=== PATIENT | male | born 1985 | race African-American/Black ===

== ENCOUNTER 2016-07-25 17:33 | Emergency (ER) ==
[2016-07-25 17:38] VITALS: BP 160/105; TEMP 97.6; BMI 38.9
--- NOTE | 2016-07-25 17:57 | ED.PDOC ---
General ED Provider: Dr. JUDY BAÑUELOS Chief Complaint: Nausea/Vomiting Stated Complaint: Nausea and Vomiting; started a few days ago with diarrhea. Last vomited 1 X yesterday - afraid to eat anything or drink anything or will be sick. Time Seen by Physician: 17:50 Mode of Arrival: Walk-In Information Source: Patient Exam Limitations: No limitations Nursing and Triage Documentation Reviewed and Agree: Yes Review of Systems - Review Of Systems Constitutional: Reports: Malaise Eyes: Reports: No symptoms Ears, Nose, Mouth, Throat: Reports: No symptoms Respiratory: Reports: Cough (Slight - occasional) GI: Reports: Nausea : Reports: No symptoms All Other Systems: Reviewed and Negative Past Medical History - Past Medical History Previously Healthy: Yes Endocrine: Reports: None Cardiovascular: Reports: None Respiratory: Reports: None Hematological: Reports: None Gastrointestinal: Reports: None Genitourinary: Reports: None Neuro/Psych: Reports: None Musculoskeletal: Reports: None Cancer: Reports: None - Surgical History General Surgical History: Reports: None - Family History Family History: Reports: Unknown - Social History Smoking Status: Current every day smoker, Heavy tobacco smoker Hx Substance Use: No Alcohol Screening: Occasionally Physical Exam - Physical Exam Appearance: Ill-appearing Ill-appearing: Mild Eyes: YOBANI, EOMI ENT: Oropharynx normal Neck: Supple Respiratory: Airway patent, Breath sounds clear, Respirations nonlabored Cardiovascular: RRR, Pulses normal GI/: Soft, Nontender, Bowel sounds hyperactive Musculoskeletal: Normal strength, ROM intact Skin: Warm, Dry, Normal color Neurological: Sensation intact, Motor intact, Alert, Oriented Psychiatric: Affect appropriate, Mood appropriate Critical Care Note - Critical Care Note Total Time (mins): 15 Course - Course Hematology/Chemistry: 07/25/16 18:05 07/25/16 18:05 Orders, Labs, Meds: Lab Review 07/25/16 18:05 WBC 6.63 RBC 5.78 Hgb 16.7 Hct 49.7 MCV 86.0 MCH 28.9 MCHC 33.6 RDW Coeff of Irvin 12.9 Plt Count 264 Immature Gran % (Auto) 0.5 Neut % (Auto) 63.0 Lymph % (Auto) 26.1 [place] % (Auto) 9.4 Eos % (Auto) 0.5 Baso % (Auto) 0.5 Immature Gran # (Auto) 0.0 Neut # 4.2 Lymph # 1.7 [place] # 0.6 Eos # 0.0 Baso # 0.0 Sodium 137 Potassium 3.7 Chloride 97 L Carbon Dioxide 31 Anion Gap 12.7 BUN 11 Creatinine 1.35 H Estimated GFR (MDRD) 74.00 BUN/Creatinine Ratio 8.14 Glucose 117 H Calcium 9.4 Total Bilirubin 0.81 AST 52 H ALT 57 Alkaline Phosphatase 60 Total Protein 8.0 Albumin 4.0 Globulin 4.0 Albumin/Globulin Ratio 1.00 Orders Category Date Time Status CBC W/ AUTO DIFF Stat LAB 07/25/16 18:05 Completed COMPREHENSIVE METABOLIC PANEL Stat LAB 07/25/16 18:05 Completed Sodium Chloride 0.9% [Sodium Chloride] 1,000 ml MEDS 07/25/16 17:56 Discontinued IV BOLUS Medications Discontinued Medications Generic Name Dose Route Start Last Admin Trade Name Freq PRN Reason Stop Dose Admin Sodium Chloride 1,000 mls @ 1,000 mls/hr 07/25/16 17:56 07/25/16 18:31 Sodium Chloride IV 07/25/16 18:55 1,000 mls/hr BOLUS STA Administration Vital Signs: Temp Pulse Resp BP Pulse Ox 07/25/16 17:34 97.6 F 85 20 160/105 H 95 Departure - Departure Time of Disposition: 19:15 Disposition: HOME SELF-CARE Discharge Problem: Gastroenteritis Instructions: Gastroenteritis (ED) Condition: Good Pt referred to PMD for follow-up: Yes (call for appointment) Additional Instructions: Use nausea medication if needed; follow up with primary care provider as needed. Keep well hydrated - small amounts of clear fluids tomight - advance diet as tolerated tomorrow. Prescriptions: Ondansetron [Zofran Odt] 4 mg PO Q6HR PRN #10 tab.rapdis PRN Reason: Nausea / Vomiting Allergies/Adverse Reactions: Allergies No Known Allergies Allergy (Verified 07/25/16 17:38) Home Medications: Ambulatory Orders Ondansetron [Zofran Odt] 4 mg PO Q6HR PRN #10 tab.rapdis 07/25/16 Disposition Discussed With: Patient
[2016-07-25 18:07] LABS: BASOPHILS % (AUTO) 0.5 % (0.0-3.0); EOSINOPHILS % (AUTO) 0.5 % (0.0-7.0); HEMATOCRIT 49.7 % (42.0-52.0); HEMOGLOBIN 16.7 g/dl (14.0-18.0); IMMATURE GRANULOCYTE % (AUTO) 0.5 % (0.0-5.0); LYMPHOCYTES # (AUTO) 1.7 K/uL (0.60-3.4); LYMPHOCYTES % (AUTO) 26.1 (10.0-50.0); MEAN CORPUSCULAR HEMOGLOBIN 28.9 pg (27.0-31.0); MEAN CORPUSCULAR HGB CONC 33.6 (31.8-35.4); MONOCYTES # (AUTO) 0.6 K/uL (0.4-2.0); MONOCYTES % (AUTO) 9.4 (0-10); NEUTROPHILS # (AUTO) 4.2 K/ul (2.0-6.9); PLATELET COUNT 264 10^3/uL (140-440); RED BLOOD COUNT 5.78 10^6/ul (4.70-6.10); WHITE BLOOD COUNT 6.63 K/ul (4.2-10.2)
[2016-07-25 18:25] LABS: ANION GAP 12.7; BILIRUBIN,TOTAL 0.81 mg/dL (0.00-1.20); BUN/CREATININE RATIO 8.14; CALCIUM 9.4 mg/dL (8.2-10.2); CREATININE 1.35 mg/dL (0.60-1.10); POTASSIUM 3.7 mmol/L (3.5-5.1)
[2016-07-25] MEDS: SODIUM CHLORIDE 1,000 ML IV STA (18:31)
== END 2016-07-25 19:30 | disposition home or self-care (01) ==
LOC: ED 17:33
DX: K52.9 Noninfective gastroenteritis and colitis, unspecified (principal); F17.210 Nicotine dependence, cigarettes, uncomplicated
CPT/HCPCS: 36415; 80053; 85025; 96360; 96361; 99283

== ENCOUNTER 2016-07-31 23:40 | Inpatient (IN) ==
[2016-07-31] MEDS ORDERED: SODIUM CHLORIDE 1,000 ML IV STA (23:43)
[2016-07-31] MEDS ORDERED: ZOFRAN 4 MG/2 ML IVP STA (23:51)
[2016-07-31] MEDS ORDERED: DILAUDID 1 MG/ML SYRINGE IVP STA (23:51)
[2016-08-01 00:13] LABS: BASOPHILS # (AUTO) 0.1 K/uL (0-0.2); BASOPHILS % (AUTO) 0.4 % (0.0-3.0); EOSINOPHILS # (AUTO) 0.2 K/ul (0.0-0.7); EOSINOPHILS % (AUTO) 1.4 % (0.0-7.0); HEMATOCRIT 41.7 % (42.0-52.0); HEMOGLOBIN 13.9 g/dl (14.0-18.0); IMMATURE GRANULOCYTE % (AUTO) 0.9 % (0.0-5.0); LYMPHOCYTES # (AUTO) 4.1 K/uL (0.60-3.4); MEAN CORPUSCULAR HGB CONC 33.3 (31.8-35.4); MEAN CORPUSCULAR VOLUME 86.9 fl (80.0-94.0); MONOCYTES # (AUTO) 1.1 K/uL (0.4-2.0); MONOCYTES % (AUTO) 7.8 (0-10); NEUTROPHILS # (AUTO) 8.5 K/ul (2.0-6.9); NEUTROPHILS % (AUTO) 60.5; PLATELET COUNT 359 10^3/uL (140-440); WHITE BLOOD COUNT 14.04 K/ul (4.2-10.2)
[2016-08-01 00:28] LABS: ALBUMIN 3.7 g/dL (3.4-5.0); ALBUMIN/GLOBULIN RATIO 1.03; ANION GAP 11.8; BILIRUBIN,TOTAL 1.07 mg/dL (0.00-1.20); BUN/CREATININE RATIO 9.7; CREATININE 1.03 mg/dL (0.60-1.10); POTASSIUM 3.8 mmol/L (3.5-5.1); TOTAL PROTEIN 7.3 g/dL (6.4-8.2)
[2016-08-01 00:44] LABS: TROPONIN I 0.018 ng/ml (0.0000-0.4000)
[2016-08-01 01:21] LABS: BILIRUBIN,URINE Negative (NEGATIVE); KETONES,URINE Negative (NEGATIVE); LEUKOCYTE ESTERASE ,URINE Negative (NEGATIVE); NITRITE,URINE Negative (NEGATIVE); PH,URINE 5.5 (5-9); PROTEIN,URINE Negative (NEGATIVE); URINE, BLOOD Trace-lysed (NEGATIVE)
[2016-08-01 01:22] LABS: ADD URINE MICROSCOPIC YES
--- NOTE | 2016-08-01 01:48 | CT ---
Exam: CT of the abdomen and pelvis with and without contrast History: Abdominal pain Technique: [address] of the abdomen pelvis without and with intravascular contrast FINDINGS: The lung bases are clear. No significant liver abnormality. The adrenals, pancreas and sp carly are unremarkable. The stomach and hiatus are unremarkable.The gallbladder appears normal. Kidne ys and proximal collecting system are unremarkable. The appendix is normal. Bowel loops demonstrate normal caliber. No inflamatory change seen in the mesentery or retroperitoneum. Ren colonic divertic ulosis. Vascular structures appear normal. Colonic diverticulosis of the sigmoid. Inflammation adjacent to the proximal sigmoid with short seg ment sigmoid colonic thickening. No abscess or free intraperitoneal gas. Normal pelvic genitourina ry structures. No acute findings of the skeleton. Impression: 1. Proximal sigmoid colonic thickening with a phlegmonous inflammatory mass and local diverticulosi s. Acute diverticulitis is considered most likely. No abscess or free intraperitoneal gas. Divert icular disease noted the length of the colon.
--- NOTE | 2016-08-01 02:24 | ED.PDOC ---
General ED Provider: Dr. NANDA GROSS-ER Chief Complaint: Abdominal Pain Stated Complaint: lisette been hurting Time Seen by Physician: 23:45 Mode of Arrival: Walk-In Information Source: Patient Exam Limitations: No limitations Nursing and Triage Documentation Reviewed and Agree: Yes GI Complaint Exam - Abdominal Pain Complaint/Exam Onset: Gradual Duration: 4 dasy Symptoms Are: Still present Timing: Constant Initial Severity: Mild Current Severity: Moderate Location of Pain: LLQ Character: Reports: Dull, Aching, Cramping Alleviating: Reports: Spontaneous resolution Associated Signs and Symptoms: Reports: Fever, Constipation. Denies: Diaphoresis, Cough, Chest pain, Dizziness, Back pain, Blood in stool, Dysuria, Urinary frequency, Decreased urine output, Decreased appetite, Discharge, Nausea , Vomiting, Diarrhea, Decreased activity Abdominal Findings: Present: None Differential Diagnoses: Diverticulitis Review of Systems - Review Of Systems Constitutional: Reports: No symptoms Eyes: Reports: No symptoms Ears, Nose, Mouth, Throat: Reports: No symptoms Respiratory: Reports: No symptoms Cardiac: Reports: No symptoms GI: Reports: Abdominal pain : Reports: No symptoms Musculoskeletal: Reports: No symptoms Skin: Reports: No symptoms Neurological: Reports: No symptoms Endocrine: Reports: No symptoms Hematologic/Lymphatic: Reports: No symptoms All Other Systems: Reviewed and Negative Past Medical History - Past Medical History Previously Healthy: Yes Endocrine: Reports: None Cardiovascular: Reports: None Respiratory: Reports: None Hematological: Reports: None Gastrointestinal: Reports: None Genitourinary: Reports: None Neuro/Psych: Reports: None Musculoskeletal: Reports: None Cancer: Reports: None - Surgical History General Surgical History: Reports: None - Family History Family History: Reports: Unknown - Social History Smoking Status: Current every day smoker, Heavy tobacco smoker Hx Substance Use: No Alcohol Screening: Occasionally Lives: With family - Immunizations Tetanus Shot up to Date: Yes Physical Exam - Physical Exam Appearance: Well-appearing, No pain distress, Well-nourished Pain Distress: Moderate Eyes: YOBANI, EOMI, Conjunctiva clear ENT: Ears normal, Nose normal, Oropharynx normal Neck: Supple Respiratory: Airway patent Cardiovascular: RRR, Pulses normal, No rub, No murmur GI/: Soft, No masses, Bowel sounds normal, Tender Musculoskeletal: Normal strength, ROM intact, No edema, No calf tenderness Skin: Warm, Dry, Normal color Neurological: Sensation intact, Motor intact, Reflexes intact, Cranial nerves intact, Alert, Oriented Psychiatric: Affect appropriate, Mood appropriate Interpretation - Radiology Interpretation Radiology Interpretation By: Radiologist Radiology Results: Positive Exam Interpreted: CT Scan Re-Evaluation - Re-Evaluation Time of Re-Evaluation: 02:24 Status: Improved Vital Signs Stable: Yes Pain Level: 1 Appearance: NAD Lungs: Clear Skin: Warm and Dry Neuro: Alert and Oriented X3 CV: RRR Critical Care Note - Critical Care Note Total Time (mins): 0 Course - Course Hematology/Chemistry: 08/01/16 00:00 08/01/16 00:00 Orders, Labs, Meds: Lab Review 08/01/16 08/01/16 00:00 01:10 WBC 14.04 H RBC 4.80 Hgb 13.9 L Hct 41.7 L MCV 86.9 MCH 29.0 MCHC 33.3 RDW Coeff of Irvin 12.7 Plt Count 359 Immature Gran % (Auto) 0.9 Neut % (Auto) 60.5 Lymph % (Auto) 29.0 [place] % (Auto) 7.8 Eos % (Auto) 1.4 Baso % (Auto) 0.4 Immature Gran # (Auto) 0.1 Neut # 8.5 H Lymph # 4.1 H [place] # 1.1 Eos # 0.2 Baso # 0.1 Sodium 139 Potassium 3.8 Chloride 105 Carbon Dioxide 26 Anion Gap 11.8 BUN 10 Creatinine 1.03 Estimated GFR (MDRD) 101.00 BUN/Creatinine Ratio 9.70 Glucose 100 Calcium 9.0 Total Bilirubin 1.07 AST 27 ALT 41 Alkaline Phosphatase 52 Total Creatine Kinase 467 CK-MB (CK-2) 2.0 CK-MB (CK-2) % 0.16372 Troponin I 0.0180 Total Protein 7.3 Albumin 3.7 Globulin 3.6 Albumin/Globulin Ratio 1.03 Amylase 33 Lipase 20 Urine Color [place] Urine Clarity Clear Urine pH 5.5 Ur Specific [place] >=1.030 Urine Protein Negative Urine Glucose (UA) Negative Urine Ketones Negative Urine Blood Trace-lysed Urine Nitrite Negative Urine Bilirubin Negative Urine Urobilinogen 0.2 Ur Leukocyte Esterase Negative Urine Microscopic RBC 5-10 Ur Squamous Epith Cells 2-5 Urine Mucus Trace Orders Category Date Time Status EKG-(ED ONLY) Stat CARDIO 07/31/16 23:42 Completed NPO REMINDER: IMAGING ONCE CARE 07/31/16 23:52 Completed IV [ED IV/MEDIPORT/POWERPORT] .ONCE EMERGENCY 07/31/16 23:43 Active AMYLASE Stat LAB 07/31/16 23:42 Completed CBC W/ AUTO DIFF Stat LAB 07/31/16 23:42 Completed COMPREHENSIVE METABOLIC PANEL Stat LAB 07/31/16 23:42 Completed CREATINE KINASE Stat LAB 07/31/16 23:43 Completed LIPASE Stat LAB 07/31/16 23:42 Completed TROPONIN I Stat LAB 07/31/16 23:43 Completed URINALYSIS C & S IF INDICATED Stat LAB 08/01/16 01:10 Completed 0.9 % Sodium Chloride [Saline Flush] MEDS 07/31/16 23:43 Ordered 1 syr IVF PRN PRN Hydromorphone HCl [Dilaudid 1 mg/ml Syringe] MEDS 07/31/16 23:51 Discontinued 1 mg IVP ONCE STA Ondansetron HCl/Pf [Zofran 4 mg/2 ml] MEDS 07/31/16 23:51 Discontinued 4 mg IVP ONCE STA Sodium Chloride 0.9% [Sodium Chloride] 1,000 ml MEDS 07/31/16 23:43 Active IV 100 mls/hr CT ABDOMEN/PELVIS W/WO CONTRAS Stat RADS 07/31/16 23:52 Completed Medications Generic Name Dose Route Start Last Admin Trade Name Freq PRN Reason Stop Dose Admin Sodium Chloride 1,000 mls @ 100 mls/hr 07/31/16 23:43 08/01/16 01:00 Sodium Chloride IV 08/01/16 09:42 100 mls/hr .Q10H STA Administration Sodium Chloride 1 syr 07/31/16 23:43 08/01/16 01:05 Saline Flush IVF 1 syr PRN PRN Administration To flush IV Discontinued Medications Generic Name Dose Route Start Last Admin Trade Name Freq PRN Reason Stop Dose Admin Hydromorphone HCl 1 mg 07/31/16 23:51 08/01/16 01:02 Dilaudid 1 Mg/Ml Syringe IVP 07/31/16 23:52 1 mg ONCE STA Administration Ondansetron HCl 4 mg 07/31/16 23:51 08/01/16 01:00 Zofran 4 Mg/2 Ml IVP 07/31/16 23:52 4 mg ONCE STA Administration Vital Signs: Temp Pulse Resp BP Pulse Ox 07/31/16 23:41 100.3 F H 102 H 18 136/89 96 Departure - Departure Time of Disposition: 02:24 Disposition: ADMITTED INPATIENT Discharge Problem: Diverticulitis of intestine Qualifiers: Diverticulitis site: large intestine Diverticulitis bleeding: without bleeding Diverticulitis complication: without perforation or abscess Qualifier Code: ( K57.32) Diverticulitis of large intestine without perforation or abscess without bleeding Instructions: Diverticulitis (ED) Condition: Good Pt referred to PMD for follow-up: Yes Allergies/Adverse Reactions: Allergies No Known Allergies Allergy (Verified 07/31/16 23:49) Home Medications: Ambulatory Orders 1 [No Reported Medications] 07/31/16 Disposition Discussed With: Patient
[2016-08-01] MEDS: DILAUDID 1 MG/ML SYRINGE IVP PRN ×5 (03:44→21:03)
[2016-08-01] MEDS: ZOSYN 3.375 GM 3.375 GM in SODIUM CHLORIDE 100 ML IV SCH ×5 (03:50→23:36)
[2016-08-01 04:11] VITALS: BMI 39.4
[2016-08-01] MEDS ORDERED: FLAGYL 500 MG/100 ML 100 ML IV ONE (04:46)
[2016-08-01] MEDS: D5%-NS-KCL 20 MEQ/L IV SOL 1,000 ML IV SCH ×2 (04:51→17:26)
[2016-08-01] MEDS: FLAGYL 500 MG/100 ML 500 MG in PREMIX 100 ML NS 1 BAG IV SCH ×3 (04:58→20:52)
[2016-08-01 06:20] LABS: BASOPHILS % (AUTO) 0.3 % (0.0-3.0); EOSINOPHILS # (AUTO) 0.2 K/ul (0.0-0.7); EOSINOPHILS % (AUTO) 1.3 % (0.0-7.0); HEMATOCRIT 40.5 % (42.0-52.0); HEMOGLOBIN 13.3 g/dl (14.0-18.0); IMMATURE GRANULOCYTE % (AUTO) 0.8 % (0.0-5.0); LYMPHOCYTES # (AUTO) 4.1 K/uL (0.60-3.4); LYMPHOCYTES % (AUTO) 30.4 (10.0-50.0); MEAN CORPUSCULAR HGB CONC 32.8 (31.8-35.4); MEAN CORPUSCULAR VOLUME 88.2 fl (80.0-94.0); MONOCYTES # (AUTO) 1.3 K/uL (0.4-2.0); MONOCYTES % (AUTO) 9.5 (0-10); NEUTROPHILS # (AUTO) 7.8 K/ul (2.0-6.9); NEUTROPHILS % (AUTO) 57.7; PLATELET COUNT 339 10^3/uL (140-440); RED BLOOD COUNT 4.59 10^6/ul (4.70-6.10)
[2016-08-01 06:40] LABS: ALBUMIN 3.4 g/dL (3.4-5.0); ALBUMIN/GLOBULIN RATIO 0.97; ANION GAP 10.9; BILIRUBIN,TOTAL 1.43 mg/dL (0.00-1.20); BUN/CREATININE RATIO 9.17; CALCIUM 8.8 mg/dL (8.2-10.2); CREATININE 1.09 mg/dL (0.60-1.10); POTASSIUM 3.9 mmol/L (3.5-5.1); TOTAL PROTEIN 6.9 g/dL (6.4-8.2)
--- NOTE | 2016-08-01 12:53 | HP ---
DATE OF SERVICE: 08/01/16 CHIEF COMPLAINT: Abdominal pain HISTORY OF PRESENT ILLNESS: This 31 year old BLACK/ M was hospitalized 08/01/16. The patient is admitted with diverticulitis. The patient states he feels constipated with last bowel movement yesterday, which was small. The abdominal pain has been ongoing for 4 days, sharp and stabbing, moves into the groin area. No nausea or vomiting. No fever, no chills. He states he just got over the flu one week ago. REVIEW OF SYSTEMS: CONSTITUTIONAL: No fever, no chills. HEENT: Normal. ENDOCRINE: No weight gain; no weight loss. CVS: No chest pain. No PND, no orthopnea. No shortness of breath. RESPIRATORY: No cough, no congestion. No hemoptysis. GI: Abdominal pain. Constipation. No nausea, no vomiting. No melena. : No hematuria. No polyuria. MUSCULOSKELETAL: No joint swelling. PSYCHIATRIC: Not anxious. No depression. No suicidal thoughts. No homicidal thoughts. SKIN: Intact, no open lesions. PAST MEDICAL HISTORY: 1. Recent history of flu 2. Hypertension - does not take medications 3. Asthma - does not take medications PAST SURGICAL HISTORY: None PERSONAL HISTORY: The patient is single. He is employed by [employer]. He has one son. Alcohol - uses socially. Tobacco - current heavy smoker. History of marijuana use. FAMILY HISTORY: High blood pressure. MEDICATIONS: None ALLERGIES: NKDA PHYSICAL EXAMINATION: V/S: Temperature 98.0 F, Pulse 85, Respiratory Rate 12, BP 124/82, Pulse Ox 98% HEENT: Atraumatic, normocephalic. No scleral icterus. No pallor. NECK: Supple. No JVD, no bruit. No lymphadenopathy. No thyromegaly. HEART: S1, S2 normal. No murmur. No cyanosis or clubbing. No ascites. LUNGS: Clear to auscultation. No rales or rhonchi. ABDOMEN: Soft. Tenderness. Bowel sounds are not heard. No CVA tenderness. No rigidity or guarding. EXTREMITIES: No cyanosis, clubbing or pedal edema. MUSCULOSKELETAL: Normal joints, no swelling. NEUROLOGIC: The patient is awake, alert, oriented times three. SKIN: Intact; no open lesions. LYMPHATIC: No lymph nodes palpable. LAB REVIEW: 08/01/16 06:15: WBC 13.50 H, RBC 4.59 L, Hgb 13.3 L, Hct 40.5 L, MCV 88.2, MCH 29.0, MCHC 32.8, RDW Coeff of Irvin 12.8, Plt Count 339, Immature Gran % (Auto) 0.8, Neut % (Auto) 57.7, Lymph % (Auto) 30.4, [place] % (Auto) 9.5, Eos % (Auto) 1.3, Baso % (Auto) 0.3, Immature Gran # (Auto) 0.1, Neut # 7.8 H, Lymph # 4.1 H , [place] # 1.3, Eos # 0.2, Baso # 0.0, Sodium 140, Potassium 3.9, Chloride 105, Carbon Dioxide 28, Anion Gap 10.9, BUN 10, Creatinine 1.09, Estimated GFR (MDRD ) 95.00, BUN/Creatinine Ratio 9.17, Glucose 103 H, Calcium 8.8, Total Bilirubin 1.43 H, AST 24, ALT 36, Alkaline Phosphatase 51, Total Protein 6.9, Albumin 3.4 , Globulin 3.5, Albumin/Globulin Ratio 0.97 ASSESSMENT: 1. Acute diverticulitis proximal sigmoid colon/constipation. PLAN: 1. Continue Flagyl, Azactam and Zofran. 2. Continue IV fluids; keep NPO 3. Dilaudid for pain 4. The patient is encouraged to walk, which will help with the inflammation/ diverticulitis Plan and coordination of the patient's care discussed in the presence of Transmission Inspector and nurse. CONDITION: Stable SCRIBED BY: PHILLIP MEDLEY Agricultural Loan Officer scribed while in presence of service performed by Dr. MAGGIE LUIS on 08/01/16 ([id number]) [facility]
[2016-08-02] MEDS: FLAGYL 500 MG/100 ML 500 MG in PREMIX 100 ML NS 1 BAG IV SCH ×3 (05:17→21:01)
[2016-08-02] MEDS: D5%-NS-KCL 20 MEQ/L IV SOL 1,000 ML IV SCH ×3 (05:18→18:05)
[2016-08-02] MEDS: DILAUDID 1 MG/ML SYRINGE IVP PRN ×5 (05:20→21:06)
[2016-08-02] MEDS: ZOSYN 3.375 GM 3.375 GM in SODIUM CHLORIDE 100 ML IV SCH ×4 (06:06→23:55)
[2016-08-02 06:08] LABS: BASOPHILS % (AUTO) 0.3 % (0.0-3.0); EOSINOPHILS # (AUTO) 0.1 K/ul (0.0-0.7); EOSINOPHILS % (AUTO) 0.8 % (0.0-7.0); HEMATOCRIT 40.1 % (42.0-52.0); HEMOGLOBIN 13.5 g/dl (14.0-18.0); IMMATURE GRANULOCYTE % (AUTO) 0.9 % (0.0-5.0); LYMPHOCYTES % (AUTO) 21.3 (10.0-50.0); MEAN CORPUSCULAR HGB CONC 33.7 (31.8-35.4); MEAN CORPUSCULAR VOLUME 86.1 fl (80.0-94.0); MONOCYTES # (AUTO) 1.6 K/uL (0.4-2.0); MONOCYTES % (AUTO) 11.2 (0-10); NEUTROPHILS # (AUTO) 9.2 K/ul (2.0-6.9); NEUTROPHILS % (AUTO) 65.5; PLATELET COUNT 375 10^3/uL (140-440); RED BLOOD COUNT 4.66 10^6/ul (4.70-6.10); WHITE BLOOD COUNT 14.06 K/ul (4.2-10.2)
[2016-08-02 06:34] LABS: ALBUMIN 3.2 g/dL (3.4-5.0); ALBUMIN/GLOBULIN RATIO 0.89; ANION GAP 11.5; BILIRUBIN,TOTAL 1.95 mg/dL (0.00-1.20); BUN/CREATININE RATIO 8.41; CALCIUM 8.7 mg/dL (8.2-10.2); CREATININE 1.07 mg/dL (0.60-1.10); POTASSIUM 3.5 mmol/L (3.5-5.1); TOTAL PROTEIN 6.8 g/dL (6.4-8.2)
[2016-08-02] MEDS ORDERED: TYLENOL PO PRN (08:18)
--- NOTE | 2016-08-02 09:28 | CT ---
EXAM: CT ABDOMEN AND PELVIS HISTORY: Abdominal and pelvic pain TECHNIQUE: CT abdomen and pelvis with intravenous contrast. Images were reconstructed using 5 mm se ction thickness. Reformations were prepared. 75 mL Omnipaque. COMPARISON: 08/01/16 FINDINGS: Liver and spleen have no focal lesions. Gallbladder, pancreas and adrenal glands appear normal. No rmal enhancement of the kidneys without hydronephrosis. Normal abdominal aorta. Unremarkable stomach and appendix. Redemonstration of sigmoid colon thickening with surrounding inf lammatory infiltration of the abdominal fat and associated diverticula consistent with diverticuliti s. Since the recent exam, the inflammatory process at this level has slightly increased. There is no evidence of paracolic abscess or pneumoperitoneum. Bowel gas pattern remains nonobstructive. Ur inary bladder and prostate are within normal limits. No significant ventral abdominal wall defect currently seen. Bones within normal limits and lung ba ses are clear. IMPRESSION: Persistent inflammation and thickening of the sigmoid colon with associated diverticula most consist ent with diverticulitis. The inflammatory process is slightly greater than previously seen although no well-defined abscess, free air or bowel obstruction is identified.
[2016-08-02 13:24] LABS: BILIRUBIN,URINE Negative (NEGATIVE); KETONES,URINE Negative (NEGATIVE); LEUKOCYTE ESTERASE ,URINE Negative (NEGATIVE); NITRITE,URINE Negative (NEGATIVE); PROTEIN,URINE Negative (NEGATIVE); URINE, BLOOD Trace-intact (NEGATIVE)
[2016-08-02 13:27] LABS: ADD URINE MICROSCOPIC YES
--- NOTE | 2016-08-02 13:48 | PN ---
DATE OF SERVICE: 08/02/16 SUBJECTIVE: The patient is seen and examined today. The patient is complaining of lower groin pain and more abdominal pain. No nausea or vomiting. He did have a fever of 100.8. He is receiving pain medication, Demerol, but it is not helping him. REVIEW OF SYSTEMS: CONSTITUTIONAL: No fever, no chills. HEENT: Normal. ENDOCRINE: No weight gain, no weight loss. CVS: No angina symptoms. No CHF symptoms. No palpitations. No atypical chest pain for CAD. No shortness of breath. No PND, no orthopnea. RESPIRATORY: No cough, no hemoptysis. GI: Abdominal tenderness. No nausea, no vomiting. : No hematuria. No polyuria. MUSCULOSKELETAL:. No joint swelling. PSYCHIATRIC: Not anxious. No depression. No suicidal thoughts. No homicidal thoughts. SKIN: Intact. No rash. PHYSICAL EXAMINATION: V/S: BP 132/75, respiratory rate 20, heart rate 101, temperature 99.5. HEENT: Normocephalic, atraumatic. Mucosa dry. NECK: Supple. No JVD, no carotid bruit. No lymphadenopathy. LUNGS: Bilateral entry is decreased. Clear to auscultation. No rales or rhonchi. HEART: S1, S2 normal. No S3. No murmur, gallop or regurgitation. ABDOMEN: Soft, tender. Suprapubic tenderness present. Bowel sounds are not active. No rigidity. No rebound or guarding. No CVA tenderness. EXTREMITIES: No clubbing, cyanosis or pedal edema. MUSCULOSKELETAL: No joint swelling. NEUROLOGIC: Awake, alert, oriented times three. No focal deficit. LYMPHATIC: No lymph nodes palpable. SKIN: Intact. LABS: White count 14.06, hemoglobin 13.5, hematocrit 40.1, platelet count 375. Sodium 135, potassium 3.5, chloride 102, bicarb 25, BUN 9, creatinine 1.07, glucose 118. ASSESSMENT: 1. ACUTE SIGMOID DIVERTICULITIS 2. STATUS POST LEUKOCYTOSIS/PERSISTENT FEVER/RULE OUT ABSCESS PLAN: 1. Continue Piperacillin/Tazobactam 2. Continue Flagyl 3. Dilaudid 1 mg q.4hr p.r.n. 4. Will get CT abdomen and pelvis with IV contrast 5. Continue NPO TIME SPENT: More than 30 minutes MTDD
[2016-08-03] MEDS: DILAUDID 1 MG/ML SYRINGE IVP PRN ×3 (01:58→19:35)
[2016-08-03] MEDS: D5%-NS-KCL 20 MEQ/L IV SOL 1,000 ML IV SCH ×4 (03:58→18:42)
[2016-08-03] MEDS: FLAGYL 500 MG/100 ML 500 MG in PREMIX 100 ML NS 1 BAG IV SCH ×3 (04:49→20:52)
[2016-08-03] MEDS: ZOSYN 3.375 GM 3.375 GM in SODIUM CHLORIDE 100 ML IV SCH ×5 (05:27→23:53)
[2016-08-03 08:02] LABS: BASOPHILS % (AUTO) 0.3 % (0.0-3.0); EOSINOPHILS # (AUTO) 0.2 K/ul (0.0-0.7); EOSINOPHILS % (AUTO) 1.5 % (0.0-7.0); HEMATOCRIT 39.6 % (42.0-52.0); HEMOGLOBIN 13.3 g/dl (14.0-18.0); IMMATURE GRANULOCYTE % (AUTO) 0.7 % (0.0-5.0); LYMPHOCYTES # (AUTO) 2.3 K/uL (0.60-3.4); LYMPHOCYTES % (AUTO) 19.2 (10.0-50.0); MEAN CORPUSCULAR HEMOGLOBIN 29.1 pg (27.0-31.0); MEAN CORPUSCULAR HGB CONC 33.6 (31.8-35.4); MEAN CORPUSCULAR VOLUME 86.7 fl (80.0-94.0); MONOCYTES # (AUTO) 1.4 K/uL (0.4-2.0); MONOCYTES % (AUTO) 11.5 (0-10); NEUTROPHILS % (AUTO) 66.8; PLATELET COUNT 358 10^3/uL (140-440); RED BLOOD COUNT 4.57 10^6/ul (4.70-6.10); WHITE BLOOD COUNT 11.95 K/ul (4.2-10.2)
[2016-08-03 08:23] LABS: ALBUMIN 3.1 g/dL (3.4-5.0); ALBUMIN/GLOBULIN RATIO 0.86; ANION GAP 11.6; BILIRUBIN,TOTAL 1.59 mg/dL (0.00-1.20); BUN/CREATININE RATIO 5.98; CALCIUM 8.9 mg/dL (8.2-10.2); CREATININE 1.17 mg/dL (0.60-1.10); POTASSIUM 3.6 mmol/L (3.5-5.1); TOTAL PROTEIN 6.7 g/dL (6.4-8.2)
[2016-08-04] MEDS: DILAUDID 1 MG/ML SYRINGE IVP PRN ×4 (00:10→18:57)
[2016-08-04] MEDS: D5%-NS-KCL 20 MEQ/L IV SOL 1,000 ML IV SCH ×2 (03:45→16:05)
[2016-08-04] MEDS: FLAGYL 500 MG/100 ML 500 MG in PREMIX 100 ML NS 1 BAG IV SCH ×3 (04:33→20:21)
[2016-08-04 04:46] LABS: BASOPHILS # (AUTO) 0.1 K/uL (0-0.2); BASOPHILS % (AUTO) 0.4 % (0.0-3.0); EOSINOPHILS # (AUTO) 0.3 K/ul (0.0-0.7); HEMATOCRIT 38.6 % (42.0-52.0); IMMATURE GRANULOCYTE % (AUTO) 0.8 % (0.0-5.0); LYMPHOCYTES # (AUTO) 2.8 K/uL (0.60-3.4); LYMPHOCYTES % (AUTO) 22.2 (10.0-50.0); MEAN CORPUSCULAR HGB CONC 33.7 (31.8-35.4); MEAN CORPUSCULAR VOLUME 86.2 fl (80.0-94.0); MONOCYTES # (AUTO) 1.2 K/uL (0.4-2.0); MONOCYTES % (AUTO) 9.6 (0-10); NEUTROPHILS # (AUTO) 8.3 K/ul (2.0-6.9); PLATELET COUNT 374 10^3/uL (140-440); RED BLOOD COUNT 4.48 10^6/ul (4.70-6.10)
[2016-08-04 05:08] LABS: ALBUMIN 3.1 g/dL (3.4-5.0); ALBUMIN/GLOBULIN RATIO 0.86; ANION GAP 12.7; BILIRUBIN,TOTAL 1.48 mg/dL (0.00-1.20); BUN/CREATININE RATIO 6.93; CALCIUM 8.9 mg/dL (8.2-10.2); CREATININE 1.01 mg/dL (0.60-1.10); POTASSIUM 3.7 mmol/L (3.5-5.1); TOTAL PROTEIN 6.7 g/dL (6.4-8.2)
[2016-08-04] MEDS: ZOSYN 3.375 GM 3.375 GM in SODIUM CHLORIDE 100 ML IV SCH ×3 (05:39→17:25)
[2016-08-04] MEDS: ZOFRAN 4 MG/2 ML IVP PRN (09:15)
[2016-08-05] MEDS: ZOFRAN 4 MG/2 ML IVP PRN
[2016-08-05] MEDS: D5%-NS-KCL 20 MEQ/L IV SOL 1,000 ML IV SCH ×3 (03:02→18:10)
[2016-08-05] MEDS: FLAGYL 500 MG/100 ML 500 MG in PREMIX 100 ML NS 1 BAG IV SCH ×3 (04:22→20:39)
[2016-08-05 04:53] LABS: BASOPHILS # (AUTO) 0.1 K/uL (0-0.2); BASOPHILS % (AUTO) 0.5 % (0.0-3.0); EOSINOPHILS # (AUTO) 0.3 K/ul (0.0-0.7); EOSINOPHILS % (AUTO) 2.2 % (0.0-7.0); HEMATOCRIT 39.2 % (42.0-52.0); HEMOGLOBIN 12.9 g/dl (14.0-18.0); LYMPHOCYTES # (AUTO) 2.6 K/uL (0.60-3.4); LYMPHOCYTES % (AUTO) 22.8 (10.0-50.0); MEAN CORPUSCULAR HEMOGLOBIN 28.7 pg (27.0-31.0); MEAN CORPUSCULAR HGB CONC 32.9 (31.8-35.4); MEAN CORPUSCULAR VOLUME 87.1 fl (80.0-94.0); MONOCYTES % (AUTO) 8.7 (0-10); NEUTROPHILS # (AUTO) 7.3 K/ul (2.0-6.9); NEUTROPHILS % (AUTO) 64.8; PLATELET COUNT 400 10^3/uL (140-440); WHITE BLOOD COUNT 11.25 K/ul (4.2-10.2)
[2016-08-05] MEDS: DILAUDID 1 MG/ML SYRINGE IVP PRN ×2 (05:15)
[2016-08-05 05:22] LABS: ALBUMIN 3.1 g/dL (3.4-5.0); ALBUMIN/GLOBULIN RATIO 0.86; ANION GAP 11.8; BILIRUBIN,TOTAL 1.26 mg/dL (0.00-1.20); BUN/CREATININE RATIO 6.42; CALCIUM 9.1 mg/dL (8.2-10.2); CREATININE 1.09 mg/dL (0.60-1.10); POTASSIUM 3.8 mmol/L (3.5-5.1); TOTAL PROTEIN 6.7 g/dL (6.4-8.2)
[2016-08-05] MEDS: ZOSYN 3.375 GM 3.375 GM in SODIUM CHLORIDE 100 ML IV SCH ×6 (05:25→23:51)
--- NOTE | 2016-08-05 11:07 | PCM.PROG ---
Attending Provider: ATTENDING PROVIDER: Dr. MAGGIE LUIS DATE OF SERVICE: 08/05/16 SUBJECTIVE: This 31 year old BLACK/ M was hospitalized 08/01/16. The patient states he feels better. He is ready to start liquids today. He has been ambulatory. He is passing gas and pain is better. He had a bowel movement yesterday. REVIEW OF SYSTEMS: CONSTITUTIONAL: No fever, no chills. ENDOCRINE: No weight loss or weight gain. HEENT: No sinus drainage, no sore throat. CVS: No angina symptoms. No CHF symptoms. No palpitations. No atypical chest pain for CAD. No shortness of breath. RESPIRATORY: No cough, no hemoptysis. GI: No melena. Some abdominal discomfort. No nausea, no vomiting. : No hematuria. No polyuria. SKIN: No rash. No wounds. MUSCULOSKELETAL: No pain. HEALTH AND SAFETY SPECIALIST: No blackout, no dizziness. No headache. No double vision. PSYCHIATRIC: Not anxious; no depression. No suicidal thoughts. No homicidal thoughts. PHYSICAL EXAMINATION: GENERAL: Lying in bed in no distress. VITAL SIGNS: Temperature 98.2 F, Pulse 82, Respiratory Rate 17, BP 118/79, Pulse Ox 97% HEENT: Normocephalic, atraumatic. Mucosa is dry, pallor positive. NECK: No JVP, no carotid bruit. No lymphadenopathy. CARDIAC: S1, S2, no S3. No murmur, gallop or regurgitation. LUNGS: Clear to auscultation. ABDOMEN: Soft, some discomfort in the abdomen. Bowel sounds active. No rigidity, guarding or CVA tenderness. EXTREMITIES: No clubbing, cyanosis or edema. NEUROLOGIC: Awake, alert and oriented x3. LYMPHATIC: No palpable lymph nodes SKIN: Not dry. Intact. MUSCULOSKELETAL: No joint swelling. LAB REVIEW: 08/05/16 04:49 08/05/16 04:49 08/05/16 04:49: WBC 11.25 H, RBC 4.50 L, Hgb 12.9 L, Hct 39.2 L, MCV 87.1, MCH 28.7, MCHC 32.9, RDW Coeff of Irvin 12.4, Plt Count 400, Immature Gran % (Auto) 1.0, Neut % (Auto) 64.8, Lymph % (Auto) 22.8, [place] % (Auto) 8.7, Eos % (Auto) 2.2, Baso % (Auto) 0.5, Immature Gran # (Auto) 0.1, Neut # 7.3 H, Lymph # 2.6, [place] # 1.0, Eos # 0.3, Baso # 0.1, Sodium 138, Potassium 3.8, Chloride 105, Carbon Dioxide 25, Anion Gap 11.8, BUN 7, Creatinine 1.09, Estimated GFR (MDRD) 95.00, BUN/Creatinine Ratio 6.42, Glucose 116 H, Calcium 9.1, Total Bilirubin 1.26 H, AST 22, ALT 21, Alkaline Phosphatase 42 L, Total Protein 6.7, Albumin 3.1 L, Globulin 3.6, Albumin/Globulin Ratio 0.86 ASSESSMENT: 1. Acute sigmoid diverticulitis 2. Anemia 3. Status post leukocytosis/persistent fever, resolved 4. Hypertension 5. Asthma 6. Anemia 7. Fractured leg as a child PLAN: 1. Continue Piperacillin/Tazobactam 2. Continue Flagyl 3. Full liquid diet 4. Activity as tolerated Plan and coordination of the patient's care discussed in the presence of Gas Charger and nurse. CONDITION: Stable SCRIBED BY: PHILLIP MEDLEY, Net Technical Architect scribed while in presence of service performed by Dr. MAGGIE LUIS on 08/05/16 ([id number])
[2016-08-05 13:41] LABS: BILIRUBIN,URINE Negative (NEGATIVE); KETONES,URINE Negative (NEGATIVE); LEUKOCYTE ESTERASE ,URINE 1+ (NEGATIVE); NITRITE,URINE Negative (NEGATIVE); PROTEIN,URINE Negative (NEGATIVE); URINE, BLOOD Trace-intact (NEGATIVE)
[2016-08-05 13:49] LABS: ADD URINE MICROSCOPIC YES
[2016-08-06] MEDS: D5%-NS-KCL 20 MEQ/L IV SOL 1,000 ML IV SCH ×2 (02:31→12:16)
[2016-08-06] MEDS: FLAGYL 500 MG/100 ML 500 MG in PREMIX 100 ML NS 1 BAG IV SCH ×2 (04:14→12:16)
[2016-08-06 05:15] LABS: BASOPHILS # (AUTO) 0.1 K/uL (0-0.2); BASOPHILS % (AUTO) 0.7 % (0.0-3.0); EOSINOPHILS # (AUTO) 0.3 K/ul (0.0-0.7); EOSINOPHILS % (AUTO) 2.9 % (0.0-7.0); HEMATOCRIT 40.7 % (42.0-52.0); HEMOGLOBIN 13.7 g/dl (14.0-18.0); IMMATURE GRANULOCYTE % (AUTO) 1.2 % (0.0-5.0); LYMPHOCYTES # (AUTO) 2.6 K/uL (0.60-3.4); LYMPHOCYTES % (AUTO) 27.7 (10.0-50.0); MEAN CORPUSCULAR HEMOGLOBIN 29.1 pg (27.0-31.0); MEAN CORPUSCULAR HGB CONC 33.7 (31.8-35.4); MEAN CORPUSCULAR VOLUME 86.6 fl (80.0-94.0); MONOCYTES # (AUTO) 0.8 K/uL (0.4-2.0); NEUTROPHILS # (AUTO) 5.4 K/ul (2.0-6.9); NEUTROPHILS % (AUTO) 58.5; PLATELET COUNT 429 10^3/uL (140-440)
[2016-08-06] MEDS: ZOSYN 3.375 GM 3.375 GM in SODIUM CHLORIDE 100 ML IV SCH ×2 (05:26→12:16)
[2016-08-06 05:40] LABS: ALBUMIN 3.4 g/dL (3.4-5.0); ALBUMIN/GLOBULIN RATIO 0.92; BILIRUBIN,TOTAL 1.02 mg/dL (0.00-1.20); BUN/CREATININE RATIO 5.69; CALCIUM 9.6 mg/dL (8.2-10.2); CREATININE 1.23 mg/dL (0.60-1.10); TOTAL PROTEIN 7.1 g/dL (6.4-8.2)
--- NOTE | 2016-08-06 10:12 | PN ---
DATE OF SERVICE: 08/03/16 SUBJECTIVE: The patient was admitted with acute sigmoid diverticulitis. The patient had a normal CAT scan yesterday and did not have show any abscess. The patient's pain and nausea and vomiting is better today. REVIEW OF SYSTEMS: CONSTITUTIONAL: No fever, no chills. HEENT: Normal. ENDOCRINE: No weight gain, no weight loss. CVS: No angina symptoms. No CHF symptoms. No palpitations. No atypical chest pain for CAD. No shortness of breath. No PND, no orthopnea. RESPIRATORY: No cough, no hemoptysis. GI: No nausea, no vomiting. No abdominal pain. : No hematuria. No polyuria. MUSCULOSKELETAL:. No joint swelling. PSYCHIATRIC: Not anxious. No depression. No suicidal thoughts. No homicidal thoughts. SKIN: Intact. No rash. PHYSICAL EXAMINATION: V/S: Blood pressure 133/86, respiratory rate 16, heart rate 73 and temperature 99. HEENT: Normocephalic, atraumatic. Ears, eyes, nose and throat normal. Mucosa dry. Pallor positive. No icterus. NECK: Supple. No JVD, no carotid bruit. No lymphadenopathy. LUNGS: Clear to auscultation. No rales or rhonchi. HEART: S1, S2 normal. No S3. No murmur, gallop or regurgitation. ABDOMEN: Soft, nontender. Bowel sounds active. No rigidity. No rebound or guarding. No CVA tenderness. EXTREMITIES: No clubbing, cyanosis or pedal edema. MUSCULOSKELETAL: No joint swelling. NEUROLOGIC: Awake, alert, oriented times three. No focal deficit. LYMPHATIC: No lymph nodes palpable. SKIN: Intact. LABS: WBC 11.95, hgb 13.3, hct 39.6, plt count 358, sodium 136, potassium 3.6. chloride 101, bicarb 27, BUN 7 and creatinine 1.17. ASSESSMENT: 1. Acute sigmoid diverticulitis 2. Anemia PLAN: 1. Continue the Piperacillin/ Tazobactam, Flagyl, Zofran and Dilaudid PRN 2. Clear liquid diet Will follow the patient in daily rounds. TIME SPENT: More than 30 minutes MTDD
[2016-08-06 10:47] VITALS: BP 130/84; TEMP 97.7
--- NOTE | 2016-08-06 11:29 | PCM.PROG ---
Attending Provider: ATTENDING PROVIDER: Dr. MAGGIE LUIS DATE OF SERVICE: 08/06/16 SUBJECTIVE: This 31 year old BLACK/ M was hospitalized 08/01/16. The patient is feeling better without any pain. He is tolerating a full liquid diet. He is passing gas and has had a bowel movement. REVIEW OF SYSTEMS: CONSTITUTIONAL: No fever, no chills. ENDOCRINE: No weight loss or weight gain. HEENT: No sinus drainage, no sore throat. CVS: No angina symptoms. No CHF symptoms. No palpitations. No atypical chest pain for CAD. No shortness of breath. RESPIRATORY: No cough, no hemoptysis. GI: No melena. No abdominal pain. No nausea, no vomiting. : No hematuria. No polyuria. SKIN: No rash. No wounds. MUSCULOSKELETAL: No pain. LPN RN: No blackout, no dizziness. No headache. No double vision. PSYCHIATRIC: Not anxious; no depression. No suicidal thoughts. No homicidal thoughts. PHYSICAL EXAMINATION: GENERAL: Lying in bed in no distress. VITAL SIGNS: Temperature 96.8 F, Pulse 76, Respiratory Rate 16, BP 110/78, Pulse Ox 95% HEENT: Normocephalic, atraumatic. Mucosa is dry, pallor positive. NECK: No JVP, no carotid bruit. No lymphadenopathy. CARDIAC: S1, S2, no S3. No murmur, gallop or regurgitation. LUNGS: Clear to auscultation. ABDOMEN: Soft, non-tender. Bowel sounds active. No rigidity, guarding or CVA tenderness. EXTREMITIES: No clubbing, cyanosis or edema. NEUROLOGIC: Awake, alert and oriented x3. LYMPHATIC: No palpable lymph nodes SKIN: Not dry. Intact. MUSCULOSKELETAL: No joint swelling. LAB REVIEW: 08/06/16 05:13 08/06/16 05:13 08/06/16 05:13: WBC 9.20, RBC 4.70, Hgb 13.7 L, Hct 40.7 L, MCV 86.6, MCH 29.1, MCHC 33.7, RDW Coeff of Irvin 12.5, Plt Count 429, Immature Gran % (Auto) 1.2, Neut % (Auto) 58.5, Lymph % (Auto) 27.7, [place] % (Auto) 9.0, Eos % (Auto) 2.9, Baso % (Auto) 0.7, Immature Gran # (Auto) 0.1, Neut # 5.4, Lymph # 2.6, [place]aden # 0.8, Eos # 0.3, Baso # 0.1, Sodium 140, Potassium 4.0, Chloride 106, Carbon Dioxide 26, Anion Gap 12.0, BUN 7, Creatinine 1.23 H, Estimated GFR (MDRD) 83.00 , BUN/Creatinine Ratio 5.69, Glucose 114 H, Calcium 9.6, Total Bilirubin 1.02, AST 29, ALT 27, Alkaline Phosphatase 43 L, Total Protein 7.1, Albumin 3.4, Globulin 3.7, Albumin/Globulin Ratio 0.92 08/05/16 13:33: Urine Color Yellow, Urine Clarity Clear, Urine pH 7.0, Ur Specific [place] 1.015, Urine Protein Negative, Urine Glucose (UA) Negative, Urine Ketones Negative, Urine Blood Trace-intact, Urine Nitrite Negative, Urine Bilirubin Negative, Urine Urobilinogen 0.2, Ur Leukocyte Esterase 1+, Urine Microscopic RBC 2-5, Urine Microscopic WBC 5-10, Ur Squamous Epith Cells Not present ASSESSMENT: 1. Acute sigmoid diverticulitis improved 2. Anemia stable 3. Status post leukocytosis/persistent fever, resolved 4. Hypertension 5. Asthma 6. Fractured leg as a child PLAN: 1. Cipro 250 mg twice a day for 5 more days 2. Discharge home 3. Flagyl 500 mg q.8hr for 5 more days 4. Soft diet 5. Followup in the clinic in one week Plan and coordination of the patient's care discussed in the presence of [employer] and nurse. CONDITION: Stable SCRIBED BY: PHILLIP MEDLEY [employer] scribed while in presence of service performed by Dr. MAGGIE LUIS on 08/06/16 (0801)
--- NOTE | 2016-08-09 12:44 | PN ---
DATE OF SERVICE: 08/04/16 SUBJECTIVE: The patient was admitted with acute sigmoid colitis, still having a lot of abdominal pain. She is passing gas. No fever or chills. Diet was started yesterday but the pain went up to 8/10 so diet is on hold right now. Still complains about the pain 8/10 lower abdominal area, passing some gas. REVIEW OF SYSTEMS: CONSTITUTIONAL: No fever, no chills. HEENT: Normal. ENDOCRINE: No weight gain, no weight loss. CVS: No angina symptoms. No CHF symptoms. No palpitations. No atypical chest pain for CAD. No shortness of breath. No PND, no orthopnea. RESPIRATORY: No cough, no hemoptysis. GI: No nausea, no vomiting. No abdominal pain. : No hematuria. No polyuria. MUSCULOSKELETAL:. No joint swelling. PSYCHIATRIC: Not anxious. No depression. No suicidal thoughts. No homicidal thoughts. SKIN: Intact. No rash. PHYSICAL EXAMINATION: V/S: Blood pressure 128/85, respiratory rate 16, heart rate 83 and temperature 98.7. HEENT: Normocephalic, atraumatic. Ears, eyes, nose and throat normal. Mucosa dry. Pallor positive. No icterus. NECK: Supple. No JVD, no carotid bruit. No lymphadenopathy. LUNGS: Clear to auscultation. No rales or rhonchi. HEART: S1, S2 normal. No S3. No murmur, gallop or regurgitation. ABDOMEN: Soft,Subpubic tenderness. Bowel sounds active. No rigidity. No rebound or guarding. No CVA tenderness. EXTREMITIES: No clubbing, cyanosis or pedal edema. MUSCULOSKELETAL: No joint swelling. NEUROLOGIC: Awake, alert, oriented times three. No focal deficit. LYMPHATIC: No lymph nodes palpable. SKIN: Intact. LABS: WBC 12.70, hgb 13.0, hct 38.6, plt count 274, sodium 138, potassium 3.7, chloride 106, bicarb 23, BUN 7 and creatinine 1.01. ASSESSMENT: 1. Acute sigmoid diverticulitis 2. Leukocytosis secondary to the same 3. Anemia which is stable PLAN: 1. Continue the Dilaudid PRN 2. Continue Zosyn and Flagyl 3. NPO Will follow the patient in daily rounds. TIME SPENT: More than 30 minutes MTDD
--- NOTE | 2016-08-21 13:11 | DS ---
DATE OF SERVICE: 08/06/16 FINAL DIAGNOSIS: 1. Sigmoid diverticulitis acute with a phlegmon reaction. 2. Anemia, which is stable probably from the diverticulitis 3. Asthma mild persistent 4. History of hypertension, he is not on any medication DISCHARGE INSTRUCTIONS: Discharge the patient home. Follow up with the [facility] within five days. MEDICATIONS AT DISCHARGE/NEW PRESCRIPTIONS: Cipro 250mg twice a day for five days. Explained about the medications reactions. Tendonitis and Bursitis do not do any pulling or pushing while taking the Cipro. Flagyl 500mg Q 8 hours for five days, do not drive any alcohol with the Flagyl DIET INSTRUCTIONS: Soft until seen by Geno Larose at [facility]. ACTIVITY: As much as tolerated. SMOKING: Heavy smoker. DISEASE SPECIFIC EDUCATION: Diverticulitis diet been discussed with the patient. HOSPITAL COURSE: Avery Mitchell who is a 31 year old male came to the emergency room with the severe abdominal pain, nausea and not feeling good. He has a temperature of 100.3. He was seen in the emergency room by Dr. Mccallum. CT of abdomen showed the proximal sigmoid colon thickening with the inflammatory mass and local diverticulosis. Acute diverticulitis considered most likely, no more abscess seen. The patient was admitted to the hospital and started on the Zosyn and the Flagyl, kept NPO. The patient kept having fever for almost 3-4 days continuously and still has temperature on the August 01 of 100.8. We repeated the CT scan again which showed again the same finding of acute diverticulitis. The patient was continued with the NPO and more activity was tolerated and he started passing the gas. Hgb dropped a little bit up to 13 but it was steady. Dilaudid was helping with the pain. He was passing gas and then evidently started on the clear liquid then advanced to the full liquid and today he was able to tolerate the regular diet and he was requesting the discharged. As patient has been in the hospital for almost 4-5 days and he says that he has to go home. Otherwise no problems at the given time. Active and tolerated the food fine. Clearly explained that he should not be eating anything solid until we see him back in one week. TIME SPENT: More than 50 minutes. MIKAYLA
== END 2016-08-06 12:30 | disposition home or self-care (01) | DRG 392 ==
LOC: ED 23:40 → MEDSURG B 08-01 02:41
PROVIDERS: ADMIT Emergency Medicine; ATTEND Emergency Medicine
DX: K57.32 Diverticulitis of large intestine without perforation or abscess without bleeding (principal); K59.00 Constipation, unspecified; I10 Essential (primary) hypertension; D64.9 Anemia, unspecified; J45.30 Mild persistent asthma, uncomplicated; R50.9 Fever, unspecified; F17.200 Nicotine dependence, unspecified, uncomplicated
CPT/HCPCS: 36415; 80053; 81001; 82150; 82550; 82553; 83690; 84484; 85025; 87086; 93005; 93010; 96361; 96374; 96375; 97802; 99223; 99233; 99239; 99284